=== PATIENT | male | born 1965 | race Caucasian/White ===

== ENCOUNTER → 2018-05-15 | Outpatient (CLI) | payer SELFPAY ==
[2018-05-15 13:36] LABS: BASOPHILS ABSOLUTE AUTO 0.05 K/mm3 (0.00-0.23); BASOPHILS PERCENT AUTO 1 % (0-2); EOSINOPHILS ABSOLUTE AUTO 0.19 K/mm3 (0.00-0.68); EOSINOPHILS PERCENT AUTO 3 % (0-6); Hemoglobin 15.2 g/dL (13.5-17.5); IMMATURE GRAN ABSOLUTE AUTO 0.03 K/mm3 (0.00-0.10); IMMATURE GRAN PERCENT AUTO 1 % (0-1); LYMPHOCYTES ABSOLUTE AUTO 2.18 K/mm3 (0.84-5.20); LYMPHOCYTES PERCENT AUTO 35 % (21-46); MONOCYTES PERCENT AUTO 10 % (4-13); Mean Corpuscular HGB 30.4 pg (26.0-34.0); Mean Corpuscular HGB Conc 34.5 g/dL (31.5-36.5); Mean Corpuscular Volume 88 fL (80-100); Mean Platelet Volume 11.1 fL (9.1-12.4); NEUTROPHILS PERCENT AUTO 51 % (41-73); Platelet Count 199 K/mm3 (150-400); RDW Coefficient Variation 13.6 % (11.7-14.2); RDW Standard Deviation 43.4 fL (35.1-46.3); White Blood Cell Count 6.25 K/mm3 (4.00-11.30)
[2018-05-15 13:53] LABS: Alanine Aminotransfer (ALT/SGP 63 U/L (12-78); Albumin, Blood 3.9 g/dL (3.4-5.0); Albumin/Globulin Ratio 0.9 (0.8-1.8); Alk Phos 113 U/L (40-126); Anion Gap 14 mmol/L (6-16); Aspartate Aminotrans (AST/SGOT 33 U/L (12-37); Bilirubin, Total 0.5 mg/dL (0.1-1.0); Blood Urea Nitrogen 12 mg/dL (8-24); Bun/Creatinine Ratio 11.3 (12.0-20.0); CO2, Blood 22 mmol/L (21-32); Calcium, Blood 8.9 mg/dL (8.5-10.1); Chloride, Blood 100 mmol/L (98-108); Creatinine, Blood 1.06 mg/dL (0.60-1.20); Globulin, Blood 4.2 g/dL (2.2-4.0); Glomerular Filtration Rate >60 (60-); Glucose, Blood 153 mg/dL (70-99); Potassium, Blood 3.8 mmol/L (3.5-5.5); Sodium, Blood 136 mmol/L (136-145); Thyroid Stimulating Hormone 12.029 uIU/mL (0.360-4.800); Total Protein, Blood 8.1 g/dL (6.4-8.2)
== END | disposition home or self-care (01) ==
LOC: LAB SHORT 13:20
PROVIDERS: Physician Assistant
DX: E11.65 Type 2 diabetes mellitus with hyperglycemia (principal); E03.9 Hypothyroidism, unspecified
CPT/HCPCS: 80053; 83036; 84443; 85025

== ENCOUNTER → 2018-08-06 | Outpatient (CLI) | payer OTHER | LOC: LAB SHORT 16:31 → LAB 16:31 | DX: L08.9 Local infection of the skin and subcutaneous tissue, unspecified (principal); R21 Rash and other nonspecific skin eruption | CPT/HCPCS: 87070; 87077; 87147; 87186; 87205 ==

== ENCOUNTER → 2019-01-02 | Outpatient (CLI) | payer OTHER | END | disposition home or self-care (01) | LOC: LAB SHORT 10:27 → LAB 10:27 | DX: L03.039 Cellulitis of unspecified toe (principal) | CPT/HCPCS: 87070; 87077; 87147; 87186; 87205 ==

== ENCOUNTER 2019-09-13 19:58 | Emergency (ER) | payer OTHER ==
[~2019-09-13] VITALS: Ht 180.3 cm; Wt 114.3 kg
[2019-09-13 20:34] LABS: BASOPHILS ABSOLUTE AUTO 0.08 K/mm3 (0.00-0.23); BASOPHILS PERCENT AUTO 1 % (0-2); EOSINOPHILS ABSOLUTE AUTO 0.45 K/mm3 (0.00-0.68); EOSINOPHILS PERCENT AUTO 6 % (0-6); Hematocrit 47.8 % (37.0-53.0); Hemoglobin 15.9 g/dL (13.5-17.5); IMMATURE GRAN ABSOLUTE AUTO 0.02 K/mm3 (0.00-0.10); IMMATURE GRAN PERCENT AUTO 0 % (0-1); LYMPHOCYTES ABSOLUTE AUTO 2.37 K/mm3 (0.84-5.20); LYMPHOCYTES PERCENT AUTO 29 % (21-46); MONOCYTES ABSOLUTE AUTO 0.73 K/mm3 (0.16-1.47); MONOCYTES PERCENT AUTO 9 % (4-13); Mean Corpuscular HGB 30.4 pg (26.0-34.0); Mean Corpuscular HGB Conc 33.3 g/dL (31.5-36.5); Mean Corpuscular Volume 91 fL (80-100); Mean Platelet Volume 10.1 fL (9.1-12.4); NEUTROPHILS ABSOLUTE AUTO 4.46 K/mm3 (1.96-9.15); NEUTROPHILS PERCENT AUTO 55 % (41-73); Platelet Count 260 K/mm3 (150-400); RDW Coefficient Variation 11.9 % (11.7-14.2); RDW Standard Deviation 40.2 fL (35.1-46.3); Red Blood Cell Count 5.23 M/mm3 (4.30-5.90); White Blood Cell Count 8.11 K/mm3 (4.00-11.30)
[2019-09-13 20:52] LABS: Alanine Aminotransfer (ALT/SGP 64 U/L (12-78); Albumin, Blood 3.9 g/dL (3.4-5.0); Albumin/Globulin Ratio 0.9 (0.8-1.8); Alk Phos 122 U/L (50-136); Anion Gap 6 mmol/L (6-16); Aspartate Aminotrans (AST/SGOT 61 U/L (12-37); Bilirubin, Total 0.5 mg/dL (0.1-1.0); Blood Urea Nitrogen 10 mg/dL (8-24); Bun/Creatinine Ratio 13.2 (12.0-20.0); CO2, Blood 26 mmol/L (21-32); Calcium, Blood 10.1 mg/dL (8.5-10.1); Chloride, Blood 101 mmol/L (98-108); Creatinine, Blood 0.76 mg/dL (0.60-1.20); Globulin, Blood 4.4 g/dL (2.2-4.0); Glomerular Filtration Rate >60 (60-); Glucose, Blood 340 mg/dL (70-99); Potassium, Blood 3.8 mmol/L (3.5-5.5); Sodium, Blood 133 mmol/L (136-145); Total Protein, Blood 8.3 g/dL (6.4-8.2)
[2019-09-13] MEDS ORDERED: ABILIFY MYCITE5 MG PO (22:43)
[2019-09-13] MEDS ORDERED: ACET325 PO (22:43)
[2019-09-13] MEDS ORDERED: DULO60 PO (22:44)
[2019-09-13] MEDS ORDERED: ATOR40TA PO (22:44)
[2019-09-13] MEDS ORDERED: GLIM2 PO (22:45)
[2019-09-13] MEDS ORDERED: GABA600 PO (22:45)
[2019-09-13] MEDS ORDERED: LAMO100 PO (22:45)
[2019-09-13] MEDS ORDERED: TIROSINT88 MCG PO (22:46)
[2019-09-13] MEDS ORDERED: Prinivil10 MG PO (22:46)
[2019-09-13] MEDS ORDERED: METF500C PO (22:46)
[2019-09-13] MEDS ORDERED: OXYC5 PO (22:47)
[2019-09-13] MEDS ORDERED: OMEP20ER PO (22:47)
[2019-09-13] MEDS ORDERED: MIRALAX17 GM PO (22:48)
[2019-09-13] MEDS ORDERED: SENN187 PO (22:51)
[2019-09-13] MEDS ORDERED: TIZA4 PO (22:52)
== END 2019-09-14 01:23 | disposition short-term general hospital (02) ==
LOC: ER 19:58
PROVIDERS: Physician Assistant
DX: L02.11 Cutaneous abscess of neck (principal); E11.9 Type 2 diabetes mellitus without complications; F31.9 Bipolar disorder, unspecified; E78.5 Hyperlipidemia, unspecified; E03.9 Hypothyroidism, unspecified; K21.9 Gastro-esophageal reflux disease without esophagitis; I10 Essential (primary) hypertension; M79.7 Fibromyalgia; Z87.891 Personal history of nicotine dependence
CPT/HCPCS: 36415; 70491; 80053; 83605; 85025; 93005; 93010; 96361; 96374-59; 96375-59; 96376; 99285-25; J1170; J1885; J7120; Q9967

== ENCOUNTER → 2020-06-28 | Outpatient (CLI) | payer OTHER ==
[~2020-06-28] MED LIST: ABILIFY MYCITE5 MG PO; ACET325 PO; ATOR40TA PO; DULO60 PO; GABA600 PO; GLIM2 PO; LAMO100 PO; METF500C PO; MIRALAX17 GM PO; OMEP20ER PO; OXYC5 PO; Prinivil10 MG PO; SENN187 PO; TIROSINT88 MCG PO; TIZA4 PO
[2020-06-28 12:31] LABS: Source, Urine Clean Catch
[2020-06-28 15:06] LABS: Appearance, Urine Hazy (Clear); Bilirubin, Urine Neg (Neg); Blood, Urine Neg (Neg); Color, Urine Yellow (P-Yellow); Glucose Qualitative, Urine Neg (Neg); Ketones, Urine Neg (Neg); Leukocyte Esterase, Urine Neg (Neg); Nitrite, Urine Neg (Neg); Protein, Urine 2+ (Neg); Specific Gravity, Urine 1.025 (1.003-1.022); Urobilinogen, Urine NORM (Normal)
[2020-06-28 15:36] LABS: Alanine Aminotransfer (ALT/SGP 60 U/L (12-78); Albumin, Blood 3.8 g/dL (3.4-5.0); Albumin/Globulin Ratio 1.2 (0.8-1.8); Alk Phos 76 U/L (50-136); Anion Gap 5 mmol/L (6-16); Aspartate Aminotrans (AST/SGOT 42 U/L (12-37); Bilirubin, Total 0.6 mg/dL (0.1-1.0); Blood Urea Nitrogen 10 mg/dL (8-24); Bun/Creatinine Ratio 9.1 (12.0-20.0); CO2, Blood 26 mmol/L (21-32); Chloride, Blood 109 mmol/L (98-108); Globulin, Blood 3.3 g/dL (2.2-4.0); Glomerular Filtration Rate >60 (60-); Glucose, Blood 145 mg/dL (70-99); PSA, %Free 28.3 %; PSA, Free 0.469 ng/mL; Sodium, Blood 140 mmol/L (136-145); Total Protein, Blood 7.1 g/dL (6.4-8.2)
[2020-06-28 15:41] LABS: Amorphous Heavy (0-Heavy); Bacteria Not Seen /hpf; Red Blood Cells, Urine Not Seen /hpf (0-2); Squamous Epithelial Cells Few /hpf (Few); White Blood Cells, Urine Not Seen /hpf (0-5)
== END | disposition home or self-care (01) ==
LOC: LAB SHORT 12:28 → PLD 12:28
PROVIDERS: Family Medicine
DX: E11.42 Type 2 diabetes mellitus with diabetic polyneuropathy (principal); R32 Unspecified urinary incontinence
CPT/HCPCS: 80053; 81001; 84153; 84154

== ENCOUNTER 2020-08-31 07:46 | Day surgery (SDC) | payer OTHER ==
[~2020-08-31] VITALS: Ht 180.3 cm; Wt 113.0 kg
--- NOTE | 2020-08-31 08:18 | NUR ---
Ambulatory in Day Surgery History, Chart, Medications and Allergies reviewed before start of procedure. Lungs clear T/O to Auscultation. Patient confirms NPO status and agrees with scheduled surgery. Pre-Op teaching done. Pt verbalizes understanding. Patient States Post-Procedure ride home has been arranged.
--- NOTE | 2020-08-31 09:59 | NUR ---
08/31/20 0959 Idania Cooley PATIENT DETERMINED TO BE ASA APPROPRIATE FOR PROPOFOL SEDATION PRIOR TO START OF PROCEDURE BY DR. FISHER. 3-LEAD EKG REVIEWED WITH PHYSICIAN PRIOR TO START OF PROCEDURE. PATIENT CONFIRMS NPO STATUS AND AGREES WITH SCHEDULED PROCEDURE. History, Chart, Medications and Allergies reviewed before start of procedure. MONITOR INTACT WITH CONTINUOUS PULSE OXIMETRY AND INTERMITTENT BP. O2 VIA N/C INTACT THROUGHOUT SEDATION/PROCEDURE.
--- NOTE | 2020-08-31 10:39 | NUR ---
REPORT FROM CHANCE HART RN. PT AWAKE AND ASKING TO USE THE BATHROOM. AMBULATED WITH STANDBY TO BR WITHOUT DIFFICULTY.
--- NOTE | 2020-08-31 11:10 | NUR ---
Discharge instructions reviewed with patient. Patient verbalizes understanding. Copy given to patient to take home. Patient States Post-Procedure ride home has been arranged. Discharged via wheelchair to private car for ride home. ALL BELONINGS RETURNED TO PATIENT.
== END 2020-08-31 11:00 | disposition home or self-care (01) ==
LOC: ORSCMMR 07:46 → ORD 07:46 → ORSCMMR 07:48 → ORD 08:30
PROVIDERS: Internal Medicine Gastroenterology
PROC: 0DB58ZX Excision of Esophagus, Via Natural or Artificial Opening Endoscopic, Diagnostic (ICD-10-PCS; principal; 2020-08-31 08:30)
PROC: 0DB78ZX Excision of Stomach, Pylorus, Via Natural or Artificial Opening Endoscopic, Diagnostic (ICD-10-PCS; principal; 2020-08-31 08:30)
PROC: 0DB48ZX Excision of Esophagogastric Junction, Via Natural or Artificial Opening Endoscopic, Diagnostic (ICD-10-PCS; principal; 2020-08-31 08:30)
PROC: 0DBL8ZX Excision of Transverse Colon, Via Natural or Artificial Opening Endoscopic, Diagnostic (ICD-10-PCS; principal; 2020-08-31 08:30)
DX: K21.9 Gastro-esophageal reflux disease without esophagitis (principal); Z12.11 Encounter for screening for malignant neoplasm of colon; Z86.010 Personal history of colon polyps; K31.7 Polyp of stomach and duodenum; K29.70 Gastritis, unspecified, without bleeding; D12.3 Benign neoplasm of transverse colon; E03.9 Hypothyroidism, unspecified; E11.9 Type 2 diabetes mellitus without complications; F32.9 Major depressive disorder, single episode, unspecified; M79.7 Fibromyalgia; Z79.84 Long term (current) use of oral hypoglycemic drugs; Z79.899 Other long term (current) drug therapy
CPT/HCPCS: 82947; 88305; 88342; A9270; J2704; J7120

== ENCOUNTER 2021-04-21 06:08 | Day surgery (SDC) | payer OTHER ==
[~2021-04-21] VITALS: Ht 177.8 cm; Wt 113.0 kg
[2021-04-21] MEDS ORDERED: FENO54 PO (07:01)
[2021-04-21] MEDS ORDERED: INSULANPEN SC (07:02)
--- NOTE | 2021-04-21 08:16 | NUR ---
ENA WITH [employer] IN ROOM DISCUSSING LINQ IMPLANT. PT VERBALIZES UNDERSTANDING WRITTEN AND VERBAL INSTRUCTIONS. DENIES QUESTIONS. VSS. MARTINO. PT DC TO HOME VIA FRIEND.
== END 2021-04-21 23:40 | disposition home or self-care (01) ==
LOC: MHTC 06:08
DX: R55 Syncope and collapse (principal)
CPT/HCPCS: 33285; C1764

== ENCOUNTER 2021-07-12 06:21 | Day surgery (SDC) | payer OTHER ==
[~2021-07-12] VITALS: Ht 177.8 cm; Wt 113.0 kg
[~2021-07-12 06:21] MED LIST changes: +ABILIFY MYCITE10 M2 PO; +FENO54 PO; +INSULANI SC; +INSULANPEN SC
--- NOTE | 2021-07-12 09:00 | NUR ---
10CC AIR REMOVED FROM R WRIST TR BAND. -BLEEDING OR SWELLING.
--- NOTE | 2021-07-12 10:03 | NUR ---
TR BAND REMOVED FROM R WRIST. -BLEEDING OR SWELLING. PT VERBALIZED UNDERSTANDING OF WRITTEN AND VERBAL D/C INST. IV REMOVED. PT TAKEN OUT OF THE [facility]ENTER VIA W/C.
== END 2021-07-12 10:05 | disposition home or self-care (01) ==
LOC: MHTC 06:21
DX: R07.89 Other chest pain (principal); I25.2 Old myocardial infarction; I11.0 Hypertensive heart disease with heart failure; I50.9 Heart failure, unspecified; K21.9 Gastro-esophageal reflux disease without esophagitis; E11.9 Type 2 diabetes mellitus without complications; E11.8 Type 2 diabetes mellitus with unspecified complications; Z79.4 Long term (current) use of insulin; Z79.84 Long term (current) use of oral hypoglycemic drugs
CPT/HCPCS: 93454; 99152; C1769; C1887; C1894; J1644; J2250; J3010; J7030; Q9967

== ENCOUNTER → 2022-05-05 | Outpatient (CLI) | payer OTHER | END | disposition home or self-care (01) | LOC: LAB SHORT 10:25 → LAB 10:25 | DX: Z51.89 Encounter for other specified aftercare (principal) | CPT/HCPCS: 87070; 87077; 87147; 87186; 87205 ==

== ENCOUNTER → 2022-10-18 | Outpatient (CLI) | payer OTHER ==
[~2022-10-18] MED LIST changes: +VRAYLAR3 MG PO
[2022-10-18 11:19] LABS: Bun/Creatinine Ratio 18.2 (12.0-20.0); Calcium, Blood 9.8 mg/dL (8.5-10.1); Creatinine, Blood 0.99 mg/dL (0.60-1.20); Potassium, Blood 3.8 mmol/L (3.5-5.5)
== END | disposition home or self-care (01) ==
LOC: LAB SHORT 08:14
PROVIDERS: Student in an Organized Health Care Education/Training Program
DX: N17.9 Acute kidney failure, unspecified (principal)
CPT/HCPCS: 80048

== ENCOUNTER → 2023-06-27 | Outpatient (CLI) | payer OTHER | LOC: LAB 11:00 → LAB SHORT 11:00 | DX: E11.42 Type 2 diabetes mellitus with diabetic polyneuropathy (principal) | CPT/HCPCS: 82043 ==

== ENCOUNTER 2023-08-14 06:12 | Day surgery (SDC) | payer OTHER ==
[~2023-08-14] VITALS: Ht 177.8 cm; Wt 106.8 kg
[~2023-08-14 06:12] MED LIST changes: +INSULIN GL100 UNIT/2 SC; -LAMO100 PO; +LANTUS SOL100 UNIT/1 SC; +LEVOTHYROXINE88 MC9 PO; +Lactated Ringer's 1,000 ML IV ONE; +Lamictal200 MG PO; +METFORMIN HCL500 MG PO; -TIROSINT88 MCG PO
[2023-08-14] MEDS ORDERED: Lactated Ringer's 1,000 ML IV ONE ×5 (06:32→13:20)
[2023-08-14] MEDS ORDERED: OMEP20ER PO (06:35)
[2023-08-14] MEDS ORDERED: ACET500 (06:35)
[2023-08-14] MEDS ORDERED: FentaNYL Citrate 50 MCG/ML 2 ML Injection ONE ×5 (07:00→12:40)
[2023-08-14] MEDS ORDERED: Rocuronium Bromide 10 MG/ML 5ML Injection IV ONE ×2 (07:00→07:45)
[2023-08-14] MEDS ORDERED: Dexamethasone Sod Phos 10 MG/ML 1ML VIAL ONE (07:00)
[2023-08-14] MEDS ORDERED: propofoL 20 ML IV ONE ×2 (07:00→09:50)
[2023-08-14] MEDS ORDERED: Ondansetron HCl 2 MG / ML 2ML Vial ONE (07:00)
[2023-08-14] MEDS ORDERED: Lidocaine 2%-Epineph 1:100000 20 ML MDV ONE (07:04)
[2023-08-14] MEDS ORDERED: EPINEPhrine HCl 1 MG / ML 30ML Vial XX PRN (07:10)
[2023-08-14] MEDS ORDERED: Midazolam HCl 1MG / ML 2ML Vial ONE ×2 (07:16→08:15)
[2023-08-14] MEDS ORDERED: propofoL 60 ML IV ONE (07:28)
[2023-08-14] MEDS ORDERED: Dexmedetomidine HCL 200 MCG / 2 ML ONE (07:33)
[2023-08-14] MEDS ORDERED: Lidocaine HCl 4% 5 ML SDA ONE (07:50)
[2023-08-14] MEDS ORDERED: ePHEDrine Sulfate 50 MG/ML 1ML Injection ONE (08:04)
[2023-08-14] MEDS ORDERED: propofoL 40 ML IV ONE ×2 (08:07→08:57)
[2023-08-14] MEDS ORDERED: EPINEPhrine HCl 1 MG/ML 1ML Amp XX ONE (08:10)
--- NOTE | 2023-08-14 08:15 | NUR ---
08/14/23 0815 Suad Madrigal 30ML OF EPI MIXED W/ 10 ML LIDOCAINE 4% USED TO SOAK PLEDGETS FOR NASAL PACKING.
[2023-08-14] MEDS ORDERED: Labetalol HCL 5 MG/ML 4ML Injection (Single Dose) ONE (08:17)
[2023-08-14] MEDS ORDERED: propofoL 100 ML IV ONE (08:23)
[2023-08-14] MEDS ORDERED: EPINEPhrine HCl 1 MG/ML 1ML Amp ONE (09:35)
[2023-08-14] MEDS ORDERED: Phenylephrine HCl 100 MCG/ML-NS 10MLSYR (1MG/10ML) ONE (09:52)
[2023-08-14] MEDS ORDERED: Sugammadex Sodium 200 MG/2ML SDV (100 MG/ML) ONE (10:05)
[2023-08-14] MEDS ORDERED: Naloxone HCl 0.4MG / ML 1ML Vial ONE (10:11)
--- NOTE | 2023-08-14 11:10 | NUR ---
08/14/[address] IN SEVERAL TIMES TO CHECK ON PATIENT.
[2023-08-14] MEDS ORDERED: OxyCODONE HCL 5 MG TAB ONE (12:22)
--- NOTE | 2023-08-14 12:27 | NUR ---
08/14/23 1227 TAMRA BALDWIN PT ADMITS TO PAIN OF 8/10. OXYCODONE 5MG PO TO BE GIVEN. STATES APPLE [employer]UCE IS HELPING HIM TO NOT BE NAUSEATED.
[2023-08-14 12:47] VITALS: BP 93/65
== END 2023-08-14 13:30 | disposition home or self-care (01) ==
LOC: ORSCSDS 06:12
PROVIDERS: Otolaryngology
PROC: 099Q4ZZ Drainage of Right Maxillary Sinus, Percutaneous Endoscopic Approach (ICD-10-PCS; principal; 2023-08-14 07:30)
PROC: 099V4ZZ Drainage of Left Ethmoid Sinus, Percutaneous Endoscopic Approach (ICD-10-PCS; principal; 2023-08-14 07:30)
PROC: 099T4ZZ Drainage of Left Frontal Sinus, Percutaneous Endoscopic Approach (ICD-10-PCS; principal; 2023-08-14 07:30)
PROC: 099X4ZZ Drainage of Left Sphenoid Sinus, Percutaneous Endoscopic Approach (ICD-10-PCS; principal; 2023-08-14 07:30)
PROC: 099U4ZZ Drainage of Right Ethmoid Sinus, Percutaneous Endoscopic Approach (ICD-10-PCS; principal; 2023-08-14 07:30)
PROC: 099R4ZZ Drainage of Left Maxillary Sinus, Percutaneous Endoscopic Approach (ICD-10-PCS; principal; 2023-08-14 07:30)
PROC: 099S4ZZ Drainage of Right Frontal Sinus, Percutaneous Endoscopic Approach (ICD-10-PCS; principal; 2023-08-14 07:30)
PROC: 099W4ZZ Drainage of Right Sphenoid Sinus, Percutaneous Endoscopic Approach (ICD-10-PCS; principal; 2023-08-14 07:30)
DX: J32.8 Other chronic sinusitis (principal); I10 Essential (primary) hypertension; I25.2 Old myocardial infarction; K21.9 Gastro-esophageal reflux disease without esophagitis; E11.9 Type 2 diabetes mellitus without complications; E03.9 Hypothyroidism, unspecified; F31.9 Bipolar disorder, unspecified; E66.9 Obesity, unspecified; Z68.33 Body mass index [BMI] 33.0-33.9, adult; Z79.899 Other long term (current) drug therapy; Z79.84 Long term (current) use of oral hypoglycemic drugs
CPT/HCPCS: 82947; 88305; 88312; A9270; C2625; J0171; J1100; J2001; J2250; J2310; J2371; J2405; J2704; J3010; J7120

== ENCOUNTER → 2024-01-22 | Outpatient (CLI) | payer OTHER ==
[~2024-01-22] MED LIST changes: +ACET500; -Lactated Ringer's 1,000 ML IV ONE
[2024-01-22 18:54] LABS: BASOPHILS ABSOLUTE AUTO 0.08 K/mm3 (0.00-0.23); BASOPHILS PERCENT AUTO 1 % (0-2); EOSINOPHILS PERCENT AUTO 3 % (0-6); Hematocrit 47.4 % (37.0-53.0); Hemoglobin 15.5 g/dL (13.5-17.5); IMMATURE GRAN ABSOLUTE AUTO 0.02 K/mm3 (0.00-0.10); IMMATURE GRAN PERCENT AUTO 0 % (0-1); LYMPHOCYTES ABSOLUTE AUTO 2.08 K/mm3 (0.84-5.20); LYMPHOCYTES PERCENT AUTO 27 % (21-46); MONOCYTES ABSOLUTE AUTO 0.56 K/mm3 (0.16-1.47); MONOCYTES PERCENT AUTO 7 % (4-13); Mean Corpuscular HGB Conc 32.7 g/dL (31.5-36.5); Mean Corpuscular Volume 86 fL (80-100); Mean Platelet Volume 10.9 fL (9.1-12.4); NEUTROPHILS ABSOLUTE AUTO 4.78 K/mm3 (1.96-9.15); NEUTROPHILS PERCENT AUTO 62 % (41-73); Platelet Count 267 K/mm3 (150-400); RDW Coefficient Variation 13.5 % (11.7-14.2); RDW Standard Deviation 42.1 fL (35.1-46.3); Red Blood Cell Count 5.54 M/mm3 (4.30-5.90); White Blood Cell Count 7.72 K/mm3 (4.00-11.30)
[2024-01-22 19:19] LABS: Anion Gap 11 mmol/L (3-11); Blood Urea Nitrogen 20 mg/dL (8-24); Bun/Creatinine Ratio 15.9 (12.0-20.0); CHOL/HDL RATIO 3.7; CO2, Blood 23 mmol/L (21-32); Calcium, Blood 9.5 mg/dL (8.5-10.1); Chloride, Blood 107 mmol/L (98-108); Cholesterol 168 mg/dL (50-200); Creatinine, Blood 1.26 mg/dL (0.60-1.20); Glomerular Filtration Rate 65 (60-); Glucose, Blood 125 mg/dL (70-99); HDL Cholesterol 45 mg/dL (>39); LDL/HDL RATIO 1.7; Low Density Lipoprotein Chol 78 mg/dL (0-110); Potassium, Blood 4.2 mmol/L (3.5-5.5); Sodium, Blood 137 mmol/L (136-145); Triglycerides 224 mg/dL (30-160); Very Low Density Lipoprot Chol 44 mg/dL (6-32)
[2024-01-22 19:38] LABS: Microalb/Creat Ratio UR, Rand 14.361 mg/g (0.000-30.000); Microalbumin, Random Urine 19.1 mg/L (0.000-20.000)
== END ==
LOC: LAB SHORT 17:30 → LAB 17:30
PROVIDERS: Student in an Organized Health Care Education/Training Program
DX: E03.9 Hypothyroidism, unspecified (principal); E11.42 Type 2 diabetes mellitus with diabetic polyneuropathy
CPT/HCPCS: 80048; 80061; 82043; 82570; 84443; 85025

== ENCOUNTER 2024-11-05 21:33 | Emergency (ER) | payer OTHER ==
[~2024-11-05] VITALS: Ht 188 cm; Wt 104.3 kg
[~2024-11-05 21:33] MED LIST changes: +IBU600 MG PO
[2024-11-05 21:45] VITALS: BP 103/59
[2024-11-05 21:57] LABS: BASOPHILS ABSOLUTE AUTO 0.07 K/mm3 (0.00-0.23); BASOPHILS PERCENT AUTO 1 % (0-2); EOSINOPHILS ABSOLUTE AUTO 0.23 K/mm3 (0.00-0.68); EOSINOPHILS PERCENT AUTO 3 % (0-6); Hematocrit 47.7 % (37.0-53.0); IMMATURE GRAN ABSOLUTE AUTO 0.01 K/mm3 (0.00-0.10); IMMATURE GRAN PERCENT AUTO 0 % (0-1); LYMPHOCYTES ABSOLUTE AUTO 2.84 K/mm3 (0.84-5.20); LYMPHOCYTES PERCENT AUTO 41 % (21-46); MONOCYTES PERCENT AUTO 10 % (4-13); Mean Corpuscular HGB 30.1 pg (26.0-34.0); Mean Corpuscular HGB Conc 33.5 g/dL (31.5-36.5); Mean Corpuscular Volume 90 fL (80-100); Mean Platelet Volume 9.9 fL (9.1-12.4); NEUTROPHILS ABSOLUTE AUTO 3.02 K/mm3 (1.96-9.15); NEUTROPHILS PERCENT AUTO 44 % (41-73); Platelet Count 300 K/mm3 (150-400); RDW Coefficient Variation 13.1 % (11.7-14.2); RDW Standard Deviation 42.6 fL (35.1-46.3); Red Blood Cell Count 5.32 M/mm3 (4.30-5.90); White Blood Cell Count 6.87 K/mm3 (4.00-11.30)
[2024-11-05 22:21] LABS: Albumin, Blood 4.6 g/dL (3.4-5.0); Albumin/Globulin Ratio 1.3 (0.8-1.8); Bilirubin, Total 0.5 mg/dL (0.1-1.0); Calcium, Blood 10.2 mg/dL (8.5-10.1); Globulin, Blood 3.6 g/dL (2.2-4.0); Total Protein, Blood 8.2 g/dL (6.4-8.2)
== END 2024-11-05 21:54 | disposition left against medical advice (07) ==
LOC: ER 21:33
PROVIDERS: Emergency Medicine
DX: Z53.21 Procedure and treatment not carried out due to patient leaving prior to being seen by health care provider (principal); R07.9 Chest pain, unspecified; R06.02 Shortness of breath; R55 Syncope and collapse; H53.8 Other visual disturbances
CPT/HCPCS: 80053; 84484; 85025

== ENCOUNTER 2025-04-20 07:43 | Day surgery (SDC) | payer OTHER ==
[~2025-04-20] VITALS: Ht 180.3 cm; Wt 109.3 kg
[2025-04-20 08:09] VITALS: BP 133/92
[2025-04-20] MEDS ORDERED: STEGLATRO5 MG PO (08:17)
--- NOTE | 2025-04-20 08:25 | NUR ---
PATIENT PREPPED FOR LOOP EXPLANT, VSS WNL. PATIENT DENYING ANY CP. MEDICATIONS REVIEWED. NO PIV REQUIRED PER MD.
[2025-04-20 08:33] VITALS: BP 133/92
[2025-04-20] MEDS ORDERED: Lidocaine 2%-Epineph 1:100000 20 ML MDV ONE (08:36)
== END 2025-04-20 23:00 | disposition home or self-care (01) ==
LOC: MHTC 07:43
DX: Z45.09 Encounter for adjustment and management of other cardiac device (principal); E11.9 Type 2 diabetes mellitus without complications; K21.9 Gastro-esophageal reflux disease without esophagitis; I10 Essential (primary) hypertension; Z79.84 Long term (current) use of oral hypoglycemic drugs; Z79.899 Other long term (current) drug therapy
CPT/HCPCS: 33286